=== PATIENT | male | born 1990 | race Caucasian/White ===

== ENCOUNTER 2021-02-24 10:35 | Emergency (ER) | payer MEDICARE, MEDICAID, SELFPAY ==
[2021-02-24 10:57] VITALS: BP 131/67; PULSE 106; RESP 16; TEMP 36.8; O2SAT 97; BMI 38.7
[2021-02-24 11:23] LABS: Add Manual Diff / Slide Review NO; Basophils Absolute Auto 0 /uL (0-100); Basophils Percent Auto 0.4 % (0-2); Eosinophils Absolute Auto 0 /uL (0-450); Eosinophils Percent Auto 0.2 % (2-4); Hematocrit 42.4 % (41-53); Hemoglobin 14.5 g/dL (13.5-17.5); Lymphocytes Absolute Auto 1400 /uL (1100-4500); Lymphocytes Percent Auto 15.8 % (25-40); Mean Corpuscular HGB Conc 34.3 % (30-36); Mean Corpuscular Hemoglobin 28.7 PG (26-34); Mean Corpuscular Volume 83.8 fL (80-100); Monocytes Absolute Auto 1200 /uL (0-900); Monocytes Percent Auto 13.3 % (3-14); Neutrophils Absolute Auto 6400 /uL (1500-7000); Neutrophils Percent Auto 70.3 % (50-75); Platelet Count 289 X10^3/uL (150-400); Red Blood Cell Count 5.05 X10^6/uL (4.5-5.9); Red Cell Distribution Width 13.7 % (11.6-14.8); White Blood Cell Count 9.1 X10^3/uL (4.5-11.0)
[2021-02-24 11:36] LABS: BUN Creatinine Ratio 12.6 (6-22); Blood Urea Nitrogen 13 mg/dL (9-20); Calcium 9.1 mg/dL (8.4-10.2); Carbon Dioxide 25 mmol/L (22-32); Chloride 105 mmol/L (98-107); Estimated Glomerular Filt Rate > 60.0 mL/min (>60); Glucose 106 mg/dL (70-100); HEMOLYSIS < 15 (0-50); Sodium 139 mmol/L (137-145)
--- NOTE | 2021-02-24 11:56 | ED_ITS ---
HPI - General Adult General Chief complaint: Dizziness Stated complaint: [employer] vac 02/23, feeling sick, vision+hearing loss Time Seen by Provider: 02/24/21 10:57 Source: patient Mode of arrival: Ambulatory Limitations: no limitations History of Present Illness HPI narrative: Patient is an otherwise healthy 30-year-old male who received the Edgar and Edgar vaccine in his left shoulder yesterday. States that overn ight he had fevers and was not feeling very well. Also slight headache. States this morning he was sitting in a hot tub where he lost his vision and hearing. He states that he never lost consciousness. It lasted approximately 2 minutes then completely resolved. He was having no symptoms at the time of my evaluation. Review of Systems Constitutional Constitutional: Reports fever(s), Reports headache(s) (Slight headache) and Denies weakness Eyes Eyes: Reports change in vision ENT Ears, Nose, Mouth, and Throat: Denies vertigo, Denies dizziness, Reports headache(s) (Slight headache) and Denies disequilibrium Comments: Loss of hearing Cardiovascular Cardiovascular: Reports system reviewed and no additional complaints, except as documented Respiratory Respiratory: Reports system reviewed and no additional complaints, except as documented Gastrointestinal Gastrointestinal: Reports system reviewed and no additional complaints, except as documented Integumentary/Breasts Skin/Breast: Denies rash Neurologic Neurologic: Denies confusion, Denies vertigo, Denies dizziness, Reports headache(s) (Slight headache), Denies disequilibrium and Denies weakness Psychiatric Psychiatric: Denies confusion Hematologic/Lymphatic Hematologic/Lymphatic: Reports system reviewed and no additional complaints, except as documented Allergic/Immunologic Allergic/Immunologic: Reports system reviewed and no additional complaints, except as documented Patient History Medical History Healthy adult Social History lives independently: Yes Exam Initial Vital Signs Initial Vital Signs: Vital Signs Temperature 98.2 F 02/24/21 10:57 Pulse Rate 106 H 02/24/21 10:57 Respiratory Rate 16 02/24/21 10:57 Blood Pressure 131/67 02/24/21 10:57 Pulse Oximetry 97 02/24/21 10:57 Const General: cooperative and comfortable Limitations: mental status not altered HENVA Head: normal to inspection and normocephalic Resp Effort & Inspection: normal respiratory effort Auscultation: clear to auscultation bilaterally Cardio Rate: regular rate Rhythm: regular rhythm Skin Lesions: no lesions Rashes: no rashes Neuro General: patient alert, patient awake and patient oriented x3 Extrem General: normal to inspection and capillary refill normal Psych Appearance: grossly normal and well kempt Course Orders Ordered: ED Orders 02/24/21 11:15 Basic Metabolic Panel Stat Complete Blood Count AUTO DIFF Stat Vital Signs Vital signs: Vital Signs - 8 hr 02/24/21 10:57 Temperature 98.2 F Pulse Rate 106 H Respiratory Rate 16 Blood Pressure 131/67 Pulse Oximetry 97 Medical Decision Making Lab Data Lab results reviewed: Yes I reviewed the patient's lab results. Result diagrams: 02/24/21 11:15 02/24/21 11:15 Labs: Lab Results 02/24/21 02/24/21 Range/Units 11:15 11:15 WBC 9.1 (4.5-11.0) X10^3/uL RBC 5.05 (4.5-5.9) X10^6/uL Hgb 14.5 (13.5-17.5) g/dL Hct 42.4 (41-53) % MCV 83.8 (80-100) fL MCH 28.7 (26-34) PG MCHC 34.3 (30-36) % RDW 13.7 (11.6-14.8) % Plt Count 289 (150-400) X10^3/uL Neut % (Auto) 70.3 (50-75) % Lymph % (Auto) 15.8 L (25-40) % Frontier % (Auto) 13.3 (3-14) % Eos % (Auto) 0.2 L (2-4) % Baso % (Auto) 0.4 (0-2) % Neut # (Auto) 6400 (6779-6938) /uL Lymph # (Auto) 1400 (9941-8986) /uL Frontier # (Auto) 1200 H (0-900) /uL Eos # (Auto) 0 (0-450) /uL Baso # (Auto) 0 (0-100) /uL Sodium 139 (137-145) mmol/L Potassium 4.0 (3.4-5.1) mmol/L Chloride 105 (98-107) mmol/L Carbon Dioxide 25 (22-32) mmol/L BUN 13 (9-20) mg/dL Creatinine 1.03 (0.66-1.25) mg/dL Estimated GFR > 60.0 (>60) mL/min BUN/Creatinine Ratio 12.6 (6-22) Glucose 106 H (70-100) mg/dL Calcium 9.1 (8.4-10.2) mg/dL MDM Narrative Medical decision making narrative: Have a very high suspicion that his symptoms today were vasovagal given the fact that he was not feeling well and also sitting in a hot tub. I have low suspicion for CVA/TIA. I also have low susp icion for thrombosis given his normal platelets in the setting of his Edgar and Edgar vaccine. Will discharge home without further workup. He was given return precautions. He expressed understanding and agreement. Discharge Plan Departure Patient Disposition: Home Clinical Impression: Alteration in vision Activity Restrictions/Additional Instructions: You can take Tylenol as needed for any fevers or body aches. I suspect that you are going to start feeling better in the next 24-48 hours. Contact your primary provider for follow-up. Return to the emergency department for any new or worsening symptoms
[2021-02-24 12:11] VITALS: BP 130/78; PULSE 90; RESP 16; O2SAT 99
== END 2021-02-24 12:11 | disposition home or self-care (01) ==
PROVIDERS: Emergency Provider Emergency Medicine
DX: H54.7 Unspecified visual loss (principal); R51.9 Headache, unspecified
CPT/HCPCS: 36415; 80048; 85025; 99281; 99283